=== PATIENT | female | born 1990 | race Caucasian/White ===

== ENCOUNTER 2017-02-25 20:36 | Emergency (ER) | payer OTHER ==
[~2017-02-25] VITALS: Ht 162.6 cm; Wt 59.0 kg
--- NOTE | 2017-02-25 20:50 | NUR ---
PT BB BOYFRIEND; PT AMBUALTORY TO ER BED 3 PT STATES "EATING DINNER, FEELS LIKE SOMETHING IS IN THROAT" PT AOX4 RR EVEN AND UNLABORED. NO SOB NOTED. NAD NOTED. NO NVD AT THIS TIME. PT NOT DIAPHORETIC. PT NOTED ANXIOUS. PT PLACED ON MONITOR WAITING FOR MD ORNELAS.
--- NOTE | 2017-02-25 20:57 | NUR ---
PAC NUSHA AT BEDSIDE FOR EVAL.
--- NOTE | 2017-02-25 21:00 | NUR ---
PT UNABLE TO SWALLOW, PAC NUSHA AWARE.
--- NOTE | 2017-02-25 21:11 | NUR ---
XRAY AT BEDSIDE FOR CHEST XRAY
--- NOTE | 2017-02-25 21:16 | NUR ---
PT TO CT.
--- NOTE | 2017-02-25 21:18 | NUR ---
CALLED DR GILL CASSANDRA DEVELOPER FOR GI
[2017-02-25] MEDS ORDERED: GLUCAGON,HUMAN RECOMBINANT 1 MG/VIAL VIAL IM STA (21:21)
[2017-02-25] MEDS ORDERED: METOCLOPRAMIDE HCL 10 MG TABLET PO STA (21:21)
--- NOTE | 2017-02-25 21:25 | NUR ---
PT RETURNED FROM CT.
[2017-02-25] MEDS ORDERED: GLUCAGON,HUMAN RECOMBINANT 1 MG/VIAL VIAL ONE (21:32)
[2017-02-25] MEDS ORDERED: METOCLOPRAMIDE HCL 10 MG TABLET ONE (21:32)
[2017-02-25] MEDS ORDERED: WATER FOR INJECTION,STERILE 10 ML ONE (21:33)
[2017-02-25] MEDS ORDERED: METOCLOPRAMIDE HCL 10 MG/2 ML VIAL ONE (21:42)
--- NOTE | 2017-02-25 22:05 | NUR ---
PAGED DR GILL
[2017-02-25] MEDS: METOCLOPRAMIDE HCL 10 MG/2 ML VIAL IM STA ×2 (22:17→23:22)
--- NOTE | 2017-02-25 22:18 | NUR ---
PT REFUSED REGLAN 10MG IM. RISK AND BENEFITS EXPLAINED X3. PT STRONGLY REFUSED.
--- NOTE | 2017-02-25 22:34 | NUR ---
FLOYD HINKLE SPEAKING TO DR. SCHWAB REGARDING ADMISSION.
--- NOTE | 2017-02-25 23:17 | NUR ---
PT REQUEST TO GET IM REGLAN AT THIS TIME.
--- NOTE | 2017-02-25 23:39 | NUR ---
MD FOY CALLED BACK SPOKE WITH SHALINI HINKLE MD DOESNT WANT THE CASE
--- NOTE | 2017-02-26 00:02 | NUR ---
PT THREW UP "CHUNKS" PT ABLE TO SWALLOW WATER WITHOUT TROUBLE. PAC NUSHA AWARE.
--- NOTE | 2017-02-26 00:03 | NUR ---
DR JOHNS AWARE AND AT BEDSIDE FOR EVAL.
--- NOTE | 2017-02-26 00:04 | NUR ---
CALLED [facility] FOR REQUEST FOR MEDICAL RECORDS SPOKE WITH DIONTE
--- NOTE | 2017-02-26 00:41 | NUR ---
Patient discharged to home in stable condition. Written and verbal after care instructions given. Patient verbalizes understanding of instruction. ambulatory with a steady gait
--- NOTE | 2017-02-26 00:41 | NUR ---
Patient does not wish to proceed with medical care recommended by PAC NUA Patient given information related to possible complications, up to and including , which could occur as a result of leaving the hospital at this time. Patient verbalizes understanding of risks involved due to leaving against medical advice. Patient has signed AMA form.
[2017-02-26 00:42] VITALS: BP 111/71
== END 2017-02-26 00:43 | disposition home or self-care (01) ==
LOC: ER 20:38
DX: T18.128A Food in esophagus causing other injury, initial encounter (principal); X58.XXXA Exposure to other specified factors, initial encounter; Y93.89 Activity, other specified; Y92.89 Other specified places as the place of occurrence of the external cause; Y99.9 Unspecified external cause status
CPT/HCPCS: 70360; 71010; 96372 ×2; 99284; A4606; J1610; J2765; J8597; Z7610